=== PATIENT | male | born 1965 | race Caucasian/White ===

== ENCOUNTER → 2016-11-13 | Outpatient (CLI) | payer OTHER ==
[~2016-11-13] VITALS: Ht 185.4 cm; Wt 113.4 kg
[~2016-11-13] MED LIST: ASPI1TAB PO; COUM2.5T11 PO; IBUP600T26 PO; LOSA25TA8 PO; NS 1,000 ML IV SCH; PERC5TAB6 PO; PROPOFOL 200 MG/20 ML VIAL As Ordered ONE; RANI1TAB6 PO
--- NOTE | 2016-11-13 09:58 | ROOR ---
Patient Name: Femi Peña Procedure Date: 11/13/2016 9:38 AM Date of : 1965 Age: 51 Room: [facility], [facility]IN [facility] Gender: Male Note Status: Finalized Procedure: Colonoscopy Indications: Screening for colorectal malignant neoplasm Providers: Julio Hein Jr, MD Referring MD: Pratik Puente MD Requesting Provider: Medicines: Propofol per Anesthesia Complications: No immediate complications. Procedure: Pre-Anesthesia Assessment: - Prior to the procedure, a History and Physical was performed, and patient medications and allergies were reviewed. The patient is competent. The risks and benefits of the procedure and the sedation options and risks were discussed with the patient. All questions were answered and informed consent was obtained. Patient identification and proposed procedure were verified by the physician and the nurse in the pre-procedure area and in the procedure room. Mental Status Examination: alert and oriented. Airway Examination: normal oropharyngeal airway and neck mobility. Respiratory Examination: clear to auscultation. CV Examination: normal. ASA Grade Assessment: II - A patient with mild systemic disease. After reviewing the risks and benefits, the patient was deemed in satisfactory condition to undergo the procedure. The anesthesia plan was to use moderate sedation / analgesia (conscious sedation). Immediately prior to administration of medications, the patient was re-assessed for adequacy to receive sedatives. The heart rate, respiratory rate, oxygen saturations, blood pressure, adequacy of pulmonary ventilation, and response to care were monitored throughout the procedure. The physical status of the patient was re-assessed after the procedure. The Colonoscope was introduced through the anus and advanced to the cecum, identified by appendiceal orifice and ileocecal valve. The colonoscopy was performed without difficulty. The patient tolerated the procedure well. The quality of the bowel preparation was adequate and good. Findings: The perianal and digital rectal examinations were normal. Pertinent negatives include normal sphincter tone, no palpable rectal lesions and no anal lesion or abnormality was detected. Two polyps were found in the rectum and descending colon. The polyps were medium in size. These polyps were removed with a hot snare. Resection and retrieval were complete. The recto-sigmoid colon, sigmoid colon, transverse colon, ascending colon, cecum, appendiceal orifice and ileocecal valve appeared normal. Impression: - Two medium polyps in the rectum and in the descending colon, removed with a hot snare. Resected and retrieved. - The recto-sigmoid colon, sigmoid colon, transverse colon, ascending colon, cecum, appendiceal orifice and ileocecal valve are normal. Recommendation: - Discharge patient to home (ambulatory). - Repeat colonoscopy in 3 - 5 years for surveillance based on pathology results. Julio Hein MD Julio Hein Jr, MD 11/13/2016 9:58:46 AM This report has been signed electronically. Number of Addenda: 0 Note Initiated On: 11/13/2016 9:38 AM Estimated Blood Loss: Estimated blood loss: none.
[2016-11-13 10:24] VITALS: BP 129/96
== END | disposition home or self-care (01) ==
LOC: M OPP 08:53
PROVIDERS: ATTEND Surgery
DX: Z12.11 Encounter for screening for malignant neoplasm of colon (principal); K62.1 Rectal polyp; D12.4 Benign neoplasm of descending colon; I10 Essential (primary) hypertension; R12 Heartburn; M19.90 Unspecified osteoarthritis, unspecified site; R06.83 Snoring; E66.9 Obesity, unspecified; Z79.82 Long term (current) use of aspirin; Z79.899 Other long term (current) drug therapy; Z88.0 Allergy status to penicillin; Z91.018 Allergy to other foods

== ENCOUNTER → 2021-11-30 | Outpatient (CLI) | payer OTHER ==
[~2021-11-30] MED LIST changes: -ASPI1TAB PO; +ASPI81TA26 PO; -COUM2.5T11 PO; +COUM2.5T17 PO; +FAMO20TA5 PO; +IBUP-1022 PO; -IBUP600T26 PO; +LOSA25TA13 PO; -LOSA25TA8 PO; +METF500T13 PO; -NS 1,000 ML IV SCH; +PERC5TAB12 PO; -PERC5TAB6 PO; -PROPOFOL 200 MG/20 ML VIAL As Ordered ONE; +RANI-397 PO; -RANI1TAB6 PO; +SERT50TA29 PO
== END ==
LOC: M LABSMTC 09:08
PROVIDERS: ATTEND Anesthesiology
DX: Z01.818 Encounter for other preprocedural examination (principal); Z11.52 Encounter for screening for COVID-19

== ENCOUNTER 2021-12-05 07:38 | Day surgery (SDC) | payer OTHER ==
[~2021-12-05] VITALS: Ht 185.4 cm; Wt 107.5 kg
[~2021-12-05 07:38] MED LIST changes: +NS 1,000 ML IV ONE
[2021-12-05] MEDS ORDERED: LIDOCAINE 2% 100MG/5ML SDV (FOR ANES.) As Ordered ONE (09:09)
[2021-12-05] MEDS ORDERED: propofoL 200 MG/20 ML VIAL As Ordered ONE (09:09)
[2021-12-05 09:22] VITALS: BP 129/93
== END 2021-12-05 09:24 | disposition home or self-care (01) ==
LOC: M OPP 07:38
PROVIDERS: ATTEND Surgery
DX: Z12.11 Encounter for screening for malignant neoplasm of colon (principal); Z86.010 Personal history of colon polyps; K63.5 Polyp of colon; I10 Essential (primary) hypertension; E11.9 Type 2 diabetes mellitus without complications; K21.9 Gastro-esophageal reflux disease without esophagitis; M19.90 Unspecified osteoarthritis, unspecified site; F41.9 Anxiety disorder, unspecified; Z86.718 Personal history of other venous thrombosis and embolism; Z88.0 Allergy status to penicillin; Z91.018 Allergy to other foods; Z79.82 Long term (current) use of aspirin; Z79.84 Long term (current) use of oral hypoglycemic drugs; Z79.899 Other long term (current) drug therapy

== ENCOUNTER → 2022-04-14 | Outpatient (REF) | payer OTHER ==
[~2022-04-14] MED LIST changes: -NS 1,000 ML IV ONE
[2022-04-14 13:07] LABS: PERCENT SATURATION 27.2 % (19.7-50.0)
== END ==
LOC: M LAB REF 12:15
PROVIDERS: ATTEND Family Medicine
DX: D64.9 Anemia, unspecified (principal)

== ENCOUNTER 2022-05-13 07:28 | Outpatient (RCR) | payer OTHER | END 2022-05-14 | LOC: M PT 07:28 | PROVIDERS: ATTEND Orthopaedic Surgery | DX: M16.9 Osteoarthritis of hip, unspecified (principal) ==

== ENCOUNTER → 2022-05-26 | Outpatient (REF) | payer BC ==
[2022-05-26 12:06] LABS: APPEARANCE, URINE MANUAL CLEAR (CLEAR); COLOR, URINE MANUAL YELLOW (YELLOW); INR 0.86; PROTHROMBIN TIME 12.1 SECONDS (12.7-14.5)
[2022-05-26 12:07] LABS: PARTIAL THROMBOPLASTIN TIME 25.4 SECONDS (25.9-37.0)
[2022-05-26 12:11] LABS: BILIRUBIN, URINE MANUAL NEGATIVE (NEGATIVE); GLUCOSE, URINE (UA) MANUAL NEGATIVE (NEGATIVE); KETONE, URINE MANUAL NEGATIVE (NEGATIVE); LEUKOCYTE ESTERASE, URINE MAN NEGATIVE (NEGATIVE); NITRITE, URINE MANUAL NEGATIVE (NEGATIVE); PROTEIN, URINE MANUAL NEGATIVE (NEGATIVE); SPECIFIC GRAVITY,URINE MANUAL 1.015 (1.002-1.035); UROBILINOGEN, URINE MANUAL NORMAL (NORMAL)
[2022-05-26 12:12] LABS: BLOOD URINE MANUAL NEGATIVE (NEGATIVE)
[2022-05-27 13:54] LABS: RBC, URINE 0-1 /hpf (0-3); WBC, URINE 0-1 /hpf (0-3)
[2022-05-27 13:55] LABS: BACTERIA, URINE NONE SEEN; HYALINE CAST, URINE NONE SEEN /lpf (0-1); SQUAMOUS EPITHELIAL CELL URINE SMALL AMOUNT /hpf (SMALL AMT)
== END ==
LOC: M LAB REF 11:30
PROVIDERS: ATTEND Family Medicine
DX: Z01.818 Encounter for other preprocedural examination (principal)

== ENCOUNTER 2022-07-03 14:23 | Outpatient (RCR) | payer BC, OTHER, SELFPAY | END 2022-07-14 | LOC: M PT 14:23 | PROVIDERS: ATTEND Orthopaedic Surgery | DX: M16.12 Unilateral primary osteoarthritis, left hip (principal) ==